=== PATIENT | male | born 1990 | race African-American/Black ===

== ENCOUNTER 2022-07-19 05:21 | Emergency (ER) | payer SELFPAY ==
[~2022-07-19] VITALS: Ht 170.2 cm; Wt 68.0 kg
[2022-07-19] MEDS ORDERED: LORAZEPAM 1 MG TABLET PO ONE (05:30)
--- NOTE | 2022-07-19 05:32 | NUR ---
BIBSELF, HOMELESS WITH CC OF MIDSTERNAL CHESTPAIN 08/16. TOOK ECSTASY THIS AM
--- NOTE | 2022-07-19 05:32 | NUR ---
BIBSELF, HOMELESS. WITH CC OF MIDSTERNAL CHESTPAIN 08/16. TOOK ECSTASY AT APPROXIMATELY 0300. PT AAOX4, IN NAD, LAYING IN BED, VITALS CHECKED.
--- NOTE | 2022-07-19 05:50 | NUR ---
20GA TO RIGHT FOREARM ESTABLISHED
[2022-07-19] MEDS ORDERED: LORAZEPAM 0.5 MG TABLET ONE (05:55)
--- NOTE | 2022-07-19 06:00 | NUR ---
LAB AT BEDSIDE
--- NOTE | 2022-07-19 06:17 | NUR ---
XR AT BEDSIDE
[2022-07-19 06:21] LABS: BASOPHILS % (AUTO) 0.4 % (0.0-2.0); EOSINOPHILS % (AUTO) 1.3 % (0.0-6.0); HEMATOCRIT 42 % (39-51); HEMOGLOBIN 14.2 g/dL (13.5-17.5); LYMPHOCYTES # (AUTO) 1.9 K/uL (0.8-4.8); LYMPHOCYTES % (AUTO) 24.7 % (20.0-44.0); MEAN CORPUSCULAR HGB CONC 34 g/dl (31.0-36.0); MEAN CORPUSCULAR VOLUME 88 fL (80-96); MONOCYTES # (AUTO) 0.9 K/uL (0.1-1.30); MONOCYTES % (AUTO) 11.8 % (2.0-12.0); NEUTROPHILS # (AUTO) 4.7 K/uL (1.8-8.9); NEUTROPHILS % (AUTO) 61.8 % (43.0-81.0); PLATELET COUNT (AUTO) 297 K/uL (150-450); RED BLOOD CELL COUNT(AUTO) 4.75 MIL/uL (4.5-6.0); WHITE BLOOD COUNT (AUTO) 7.6 K/uL (4.3-11.0)
[2022-07-19 06:32] LABS: CALCIUM, SERUM 9.3 mg/dL (8.5-10.1); CARBON DIOXIDE 29 mmol/L (21-32); CHLORIDE 105 mmol/L (98-107); CREATININE 1.1 mg/dL (0.6-1.3); GLUCOSE 109 mg/dL (74-106); POTASSIUM 4.2 mmol/L (3.5-5.1); SODIUM SERUM 139 mmol/L (136-145); UREA NITROGEN, BLOOD 8 mg/dL (7-18)
[2022-07-19 06:34] LABS: ALANINE AMINOTRANSFERASE 31 U/L (12-78); ALBUMIN 4.3 g/dL (3.4-5.0); ALCOHOL, BLOOD < 3 mg/dL (0-10); ALKALINE PHOSPHATASE 80 U/L (46-116); ASPARTATE AMINOTRANSFERASE 17 U/L (15-37); BILIRUBIN,DIRECT 0.1 mg/dL (0.0-0.2); BILIRUBIN,TOTAL 0.4 mg/dL (0.2-1.0); TOTAL PROTEIN, SERUM 7.7 g/dL (6.4-8.2)
--- NOTE | 2022-07-19 08:33 | NUR ---
COVID SWAB TAKEN
--- NOTE | 2022-07-19 08:46 | NUR ---
CALLED [employer]END[employer] AND LEFT VOICEMAIL
--- NOTE | 2022-07-19 11:34 | NUR ---
IV removed. Catheter intact and site benign. Pressure and 4x4 applied to site. No bleeding noted.Patient discharged to home in stable condition. Written and verbal after care instructions given. Patient verbalizes understanding of instruction.
[2022-07-19 11:49] VITALS: BP 117/69
== END 2022-07-19 11:34 | disposition home or self-care (01) ==
LOC: ER 05:24
DX: R07.89 Other chest pain (principal); F19.10 Other psychoactive substance abuse, uncomplicated; Z20.822 Contact with and (suspected) exposure to COVID-19; Z59.00 Homelessness unspecified
CPT/HCPCS: 99285; 93005; 71045; 85025; 80048; 80076; 36415; 84484; 87426; 80143; 80320; 80307; C9803; G0480